=== PATIENT | male | born 1995 | race Caucasian/White ===

== ENCOUNTER 2021-01-06 18:57 | Emergency (ER) | payer BC ==
[2021-01-06] MEDS ORDERED: Ibuprofen 200 MG TAB ONE (19:56)
[2021-01-06] MEDS ORDERED: Acetaminophen 500 MG TAB ONE (19:57)
== END 2021-01-06 20:30 | disposition home or self-care (01) ==
LOC: CSHERS 18:57
DX: R07.9 Chest pain, unspecified (principal)
CPT/HCPCS: 71045; 93005